=== PATIENT | male | born 1995 | race Caucasian/White ===

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

== ENCOUNTER 2017-07-20 19:16 | Emergency (ER) | payer SELFPAY ==
--- NOTE | 2017-07-20 19:51 | RAD ---
INDICATION: Cough COMPARISON: None TECHNIQUE: PA and lateral views of the chest were obtained. FINDINGS: The heart and mediastinum are normal in size and contour. The lungs are grossly clear. There is no evidence of large pleural effusion. Visualized bones are normal for the patient's age. There is no radiographic evidence of free air beneath the diaphragm IMPRESSION: No radiographic evidence of acute cardiopulmonary disease.
[2017-07-20] MEDS ORDERED: predniSONE TAB* 20 MG PO ONE (20:04)
[2017-07-20] MEDS ORDERED: A lbuterol Hfa (PREPAK) 1 MDI - ED TAKE HOME DISPENSING ONLY INHH ONE (20:07)
--- NOTE | 2017-07-20 20:09 | ED ---
Respiratory - HPI Summary HPI Summary: 22-year-old male presents with cough and sinus congestion for week. He states his symptoms seemed to have gotten better and then got worst over the past couple days. He denies any sinus pressure. He denies any headache. He denies any sore throat. He states he has started to loose his voice due to coughing. He states occasionally has some bloody nose. He states also been seeing some blood in the sputum. He states is not large amount. He denies abdominal pain. Denies any nausea vomiting. He states he does have chest tightness and shortness of breath when he coughs. No chest pain or shortness breath at rest. He is nonsmoker. He denies any pain or swelling in his calf muscles. He does not have a history of asthma. - History of Current Complaint Chief Complaint: EDUpperRespComplaint Stated Complaint: CONGESTION/COUGH Time Seen by Provider: 07/20/17 19:26 Pain Intensity: 8 - Allergy/Home Medications Allergies/Adverse Reactions: Allergies Allergy/AdvReac Type Severity Reaction Status Date / Time MS Penicillins [Penicillins] Allergy Unknown Hives Verified 06/28/16 22:04 PMH/Surg Hx/FS Hx/Imm Hx Endocrine/Hematology History: Denies: Hx Diabetes Cardiovascular History: Denies: Hx Hypertension Respiratory History: Denies: Hx Asthma Infectious Disease History: No Infectious Disease History: Denies: Traveled Outside the [place] in Last 30 Days - Family History Known Family History: Negative: Cardiac Disease, Hypertension, Diabetes - Social History Alcohol Use: None Hx Substance Use: No Substance Use Type: Reports: None Smoking Status (MU): Former Smoker Review of Systems Negative: Fever Positive: Nasal Discharge Positive: Chest Pain - with cough Positive: Shortness Of Breath - with cough, Cough Negative: Abdominal Pain, Vomiting All Other Systems Reviewed And Are Negative: Yes Physical Exam Triage Information Reviewed: Yes Vital Signs On Initial Exam: Initial Vitals Temp Pulse Resp BP Pulse Ox 97.7 F 97 16 165/86 100 07/20/17 19:20 07/20/17 19:20 07/20/17 19:20 07/20/17 19:20 07/20/17 19:20 Vital Signs Reviewed: Yes Appearance: Positive: Well-Appearing Skin: Positive: Warm, Dry Head/Face: Positive: Normal Head/Face Inspection Eyes: Positive: Normal, EOMI, DEBBIE, Conjunctiva Clear ENT: Positive: Normal ENT inspection, Pharynx normal, TMs normal. Negative: Nasal congestion, Nasal drainage, Sinus tenderness Respiratory/Lung Sounds: Positive: Clear to Auscultation, Breath Sounds Present Cardiovascular: Positive: Normal, RRR Abdomen Description: Positive: Nontender, Soft Bowel Sounds: Positive: Present Musculoskeletal: Positive: Normal Neurological: Positive: Normal Psychiatric: Positive: Normal Diagnostics - Vital Signs Vital Signs Temp Pulse Resp BP Pulse Ox 07/20/17 19:20 97.7 F 97 16 165/86 100 - Laboratory Lab Statement: Any lab studies that have been ordered have been reviewed, and results considered in the medical decision making process. - Radiology chest Xray Interpretation: No Acute Changes Radiology Interpretation Completed By: Radiologist Disposition - Course Course Of Treatment: 22-year-old male presents with cough and sinus congestion for week. He states his symptoms seemed to have gotten better and then got worst over the past couple days. He denies any sinus pressure. He denies any headache. He denies any sore throat. He states he has started to loose his voice due to coughing. He states occasionally has some bloody nose. He states also been seeing some blood in the sputum. He states is not large amount. He denies abdominal pain. Denies any nausea vomiting. He states he does have chest tightness and shortness of breath when he coughs. No chest pain or shortness breath at rest. He is nonsmoker. He denies any pain or swelling in his calf muscles. He does not have a history of asthma. On exam heart regular rate and rhythm. Lungs clear to auscultation. Abdomen soft nontender. Chest x -ray normal. We'll treat as bronchitis with prednisone inhaler. Discussed that is a viral infection and anitibiotics are not needed at this time. Patient understands agrees with plan. - Differential Dx - Cardiopulmonary Differential Diagnoses - Cardiopulmonary: Bronchitis, Lower Resp Infection, Sinusitis - Diagnoses Provider Diagnoses: Bronchitis Discharge - Sign-Out/Discharge Documenting (check all that apply): Discharge - Discharge Plan Condition: Good Disposition: HOME Prescriptions: predniSONE TAB* [Deltasone TAB*] 50 mg PO DAILY #4 tab Patient Education Materials: Acute Bronchitis (ED) Referrals: [facility] [place] [place] [facility]FERR[facility] [Outside] Erik Rodriguez MD [Primary Care Provider] - Additional Instructions: Use inhaler one puff every 4 hours for cough as needed Take steroid once a day for 5 days Use saline in the nose Use humidifier or place warm bowls of water around the room Cough can last up to 4 weeks Follow up with primary care physician in 5 days Return to ED if develop any new or worsening symptoms - Billing Disposition and Condition Condition: GOOD Disposition: HOME
[2017-07-20 20:22] VITALS: BP 147/90
== END 2017-07-20 20:21 | disposition home or self-care (01) ==
LOC: ED 19:16
DX: J40 Bronchitis, not specified as acute or chronic (principal); R09.81 Nasal congestion; R06.02 Shortness of breath; R05 Cough; Z87.891 Personal history of nicotine dependence; R11.10 Vomiting, unspecified
CPT/HCPCS: 71046; 99282; A9270-GY; J7512

== ENCOUNTER 2018-07-23 23:23 | Emergency (ER) | payer SELFPAY ==
[2018-07-24] MEDS ORDERED: Tetan/Diph/Pertus SYR(Tdap)* 0.5 ML SYR(BOOSTRIX) use SYR IM ONE (00:26)
--- NOTE | 2018-07-24 00:57 | ED ---
Laceration/Wound HPI - HPI Summary HPI Summary: 23-year-old female presents for laceration to his abdomen. States around 21:55 tonight while at work he was struck in the mid upper abdomen by a small piece of metal. States the metal did not penetrate his clothing. Bleeding was controlled with direct pressure prior to arrival. Last tetanus was approximately 8-9 years ago. Denies abdominal pain, nausea, or vomiting. - History of Current Complaint Stated Complaint: POSS NEEDS STICHES ON STOMACH PER PT Time Seen by Provider: 07/23/18 23:49 Hx Obtained From: Patient Pain Intensity: 2 - Allergy/Home Medications Allergies/Adverse Reactions: Allergies Allergy/AdvReac Type Severity Reaction Status Date / Time Penicillins Allergy Hives Verified 07/23/18 23:33 PMH/Surg Hx/FS Hx/Imm Hx Previously Healthy: Yes - Denies significant PMH Endocrine/Hematology History: Denies: Hx Diabetes Cardiovascular History: Denies: Hx Hypertension Respiratory History: Denies: Hx Asthma - Immunization History Date of Tetanus Vaccine: 8-9 years ago Immunizations Up to Date: No Infectious Disease History: No Infectious Disease History: Denies: Traveled Outside the [place] in Last 30 Days - Family History Known Family History: Negative: Cardiac Disease, Hypertension, Diabetes - Social History Alcohol Use: None Hx Substance Use: No Substance Use Type: Reports: None Smoking Status (MU): Former Smoker Review of Systems Negative: Fever, Chills Cardiovascular: Negative Respiratory: Negative Negative: Abdominal Pain, Vomiting, Diarrhea, Nausea Genitourinary: Negative Musculoskeletal: Negative Skin: Other - See HPI Neurological: Negative All Other Systems Reviewed And Are Negative: Yes Physical Exam - Summary Physical Exam Summary: GENERAL APPEARANCE: Well developed, well nourished, alert and cooperative, and appears to be in no acute distress. CARDIAC: Normal S1 and S2. No S3, S4 or murmurs. Rhythm is regular. There is no peripheral edema, cyanosis or pallor. Extremities are warm and well perfused. Capillary refill is less than 2 seconds. Peripheral pulses intact. LUNGS: Clear to auscultation without rales, rhonchi, wheezing or diminished breath sounds. ABDOMEN: Positive bowel sounds. Soft, nondistended, nontender. No guarding or rebound. No masses or hepatosplenomegally. MUSKULOSKELETAL: ROM intact to all extremities. No joint erythema or tenderness. Normal muscular development. Normal gait. SKIN: 0.4 cm superficial linear laceration to the mid, upper abdomen with mild surrounding ecchymosis. Bleeding controlled. No FB noted. Triage Information Reviewed: Yes Vital Signs On Initial Exam: Initial Vitals Temp Pulse Resp BP Pulse Ox 97.6 F 97 16 159/93 100 07/23/18 23:25 07/23/18 23:25 07/23/18 23:25 07/23/18 23:25 07/23/18 23:25 Vital Signs Reviewed: Yes Procedures - Laceration/Wound Repair 1 Location: abdomen Description: Linear Length, Depth and Shape: 0.4 cm superficial into the dermis Laceration/Wound Explored: clean, no foreign body removed, Other - Wound thoroughly cleansed with sterile saline. Closure: SteriStrips Diagnostics - Vital Signs Vital Signs Temp Pulse Resp BP Pulse Ox 07/23/18 23:25 97.6 F 97 16 159/93 100 - Laboratory Lab Statement: Any lab studies that have been ordered have been reviewed, and results considered in the medical decision making process. Laceration Repair Course/Dx - Course Course Of Treatment: 23-year-old female presents for laceration to his abdomen. States around 21:55 tonight while at work he was struck in the mid upper abdomen by a small piece of metal. States the metal did not penetrate his clothing. Bleeding was controlled with direct pressure prior to arrival. Last tetanus was approximately 8-9 years ago. Denies abdominal pain, nausea, or vomiting. Afebrile. Hypertensive otherwise vital signs stable. Exam was remarkable for a 0.4 cm superficial laceration that extends into the dermis to his mid-upper abdomen with some surrounding ecchymosis. The laceration was cleansed, explored with no foreign body noted, and closed using a single Steri- Strip. Patient's tetanus was updated. Wound care, anticipatory guidance, and warning symptoms are reviewed with the patient. He verbalizes understanding and agrees of care. - Differential Dx Differental Diagnoses: Foreign Body, Hematoma, Laceration, Puncture Wound - Clinical Impression Provider Diagnoses: Laceration of abdomen without foreign body Discharge - Sign-Out/Discharge Documenting (check all that apply): Patient Departure Patient Received Moderate/Deep Sedation with Procedure: No - Discharge Plan Condition: Stable Disposition: HOME Patient Education Materials: Laceration (ED), Steristrips (ED) Referrals: Erik Rodriguez MD [Primary Care Provider] - Additional Instructions: Your laceration was repaired with a Steri-Strip. The Steri-Strips will slowly peel up from the ends over the next few days. You may trim the ends as needed but do not pull off or you may reopen the wound. Keep the wound covered with a dressing. Change this at least once a day or anytime the dressing becomes wet or soiled. Take acetaminophen (Tylenol) or ibuprofen (Advil, Motrin) according to directions as needed for pain. Your tetanus was updated today. Be sure to notify your primary care provider so they can update their records. Watch for signs of infection including fever greater than 100.5 F, severe pain not managed with with pain medicine, redness that spreads, swelling of the finger, pus draining from the wound, or any worsening of symptoms. Seek immediate medical attention if any of these occur. - Billing Disposition and Condition Condition: STABLE Disposition: Home
[2018-07-24 01:10] VITALS: BP 141/68
== END 2018-07-24 01:09 | disposition home or self-care (01) ==
LOC: ED 23:23
DX: S31.119A Laceration without foreign body of abdominal wall, unspecified quadrant without penetration into peritoneal cavity, initial encounter (principal); Z88.0 Allergy status to penicillin
CPT/HCPCS: 12001; 90471; 90715; 99282

== ENCOUNTER 2019-06-13 16:31 | Emergency (ER) | payer SELFPAY ==
[2019-06-13 17:10] VITALS: BP 134/70
--- NOTE | 2019-06-13 17:21 | UC ---
Laceration HPI - HPI Summary HPI Summary: 24-year-old male who sustained a laceration to his distal right index finger when he was cutting a tie with a clean knife. Last tetanus was one year ago. Bleeding is controlled. - History Of Current Complaint Chief Complaint: UCLaceration Stated Complaint: RT INDEX FINGER LAC Time Seen by Provider: 06/13/19 17:12 Hx Obtained From: Patient Laceration Location: Finger Mechanism Of Injury: Sharp Trauma Onset/Duration: Sudden Onset Severity: Mild Pain Intensity: 1 Aggravating Factors: Nothing Related History: Dominant Hand Right - Allergies/Home Medications Allergies/Adverse Reactions: Allergies Allergy/AdvReac Type Severity Reaction Status Date / Time Penicillins Allergy Hives Verified 06/13/19 17:10 Home Medications: Home Medications Ibuprofen [Advil] 400 mg PO SEE INSTRUCTIONS PRN 07/27/13 [History Confirmed 11/24] Ascorbic Acid TAB* [Vitamin C TAB*] 500 mg PO DAILY 06/13/19 [History Confirmed 06/13/19] Melatonin/Pyridoxine HCl (B6) [Melatonin] 1 tab PO QPM PRN 06/13/19 [History Confirmed 06/13/19] PMH/Surg Hx/FS Hx/Imm Hx Previously Healthy: Yes - Surgical History Surgical History: None - Family History Known Family History: Negative: Cardiac Disease, Hypertension, Diabetes - Social History Occupation: Unemployed Lives: With Family Alcohol Use: Occasionally Substance Use Type: None Smoking Status (MU): Current Some Day Smoker Household Exposure Type: Cigarettes - Immunization History Most Recent Influenza Vaccination: unknown Most Recent Tetanus Shot: UTD Review of Systems All Other Systems Reviewed And Are Negative: Yes Skin: Positive: Other - Patient sustained a laceration to his distal right index finger from a sharp knife he was using. Is Patient Immunocompromised?: No Physical Exam Triage Information Reviewed: Yes Appearance: Well-Appearing, No Pain Distress, Well-Nourished Vital Signs: Initial Vital Signs Temp 99.4 F 06/13/19 16:59 Pulse 101 06/13/19 16:59 Resp 20 06/13/19 16:59 BP 134/70 06/13/19 16:59 Pulse Ox 98 06/13/19 16:59 Vital Signs Reviewed: Yes Musculoskeletal: Positive: Strength Intact, ROM Intact Neurological: Positive: Alert, Muscle Tone Normal Psychological Exam: Normal Skin: Positive: Other - Patient has an approximately 1.5 cm laceration to his distal index finger. Bleeding is controlled. The patient prefers not to have sutures he would rather have Steri-Strips. He is presently unemployed and states that he can take care of the wound and change dressing daily. Laceration Course/Dx - Course/Dx Course Of Treatment: The patient is comfortable here. He did cleanse the wound with running water. 2 Steri-Strips were then applied after using Mastisol around the wound to help with adhesion of the Steri-Strips. Given adhesive was then applied over the Steri-Strips. A dry sterile bulky dressing was then applied. The Patient tolerated the procedure well. He was advised to elevate his hand as much as possible and if he notices any bleeding through the dressing he is to apply pressure and recheck with his primary care provider as needed. He is to keep the Steri-Strips in place for 7 days. - Diagnosis Provider Diagnosis: Laceration of finger Discharge ED - Sign-Out/Discharge Documenting (check all that apply): Patient Departure All imaging exams completed and their final reports reviewed: No Studies - Discharge Plan Condition: Good Disposition: HOME Patient Education Materials: Skin Adhesive Care (ED), Steristrips (ED) Referrals: Erik Rodriguez MD [Primary Care Provider] - Additional Instructions: Elevate as much as possible. Change dressing if it bleeds through however you can change it daily. Keep the Steri-Strips in place for at least 7 days. Watch for signs of infection such as hot, red, tender, pus drainage or red streaks up your finger and hand. Follow-up with your primary care provider as needed if he develops signs of infection. - Billing Disposition and Condition Condition: GOOD Disposition: Home
== END 2019-06-13 17:45 | disposition home or self-care (01) ==
LOC: UCCORT 16:31
DX: S61.210A Laceration without foreign body of right index finger without damage to nail, initial encounter (principal); W26.0XXA Contact with knife, initial encounter; Y93.89 Activity, other specified; Y92.9 Unspecified place or not applicable; Z88.0 Allergy status to penicillin; Z72.0 Tobacco use
CPT/HCPCS: 12001; 99211; G0463